=== PATIENT | female | born 1950 | race American Indian/Alaskan Native ===

== ENCOUNTER 2022-09-07 13:52 | Emergency (ER) | payer OTHER ==
[2022-09-07] MEDS ORDERED: Cyclobenzaprine 10 MG TAB ONE (14:27)
== END 2022-09-07 16:30 | disposition home or self-care (01) ==
LOC: CSHERS 13:52
DX: S16.1XXA Strain of muscle, fascia and tendon at neck level, initial encounter (principal); M25.561 Pain in right knee; M79.671 Pain in right foot; I10 Essential (primary) hypertension; E11.9 Type 2 diabetes mellitus without complications; W19.XXXA Unspecified fall, initial encounter
CPT/HCPCS: 71045; 72125; 72170

== ENCOUNTER 2022-11-30 15:26 | Outpatient (CLI) | payer OTHER | END 2022-11-30 15:27 | disposition home or self-care (01) | LOC: CSHRAD 15:26 | PROVIDERS: ATTEND Family Medicine | DX: M54.42 Lumbago with sciatica, left side (principal); M46.1 Sacroiliitis, not elsewhere classified; I70.90 Unspecified atherosclerosis; M47.816 Spondylosis without myelopathy or radiculopathy, lumbar region; I70.0 Atherosclerosis of aorta | CPT/HCPCS: 72100; 72202 ==

== ENCOUNTER 2022-12-26 11:30 | Outpatient (CLI) | payer OTHER | END 2022-12-26 11:31 | disposition home or self-care (01) | LOC: CSHMAMMO 11:30 | PROVIDERS: ATTEND Family Medicine | DX: Z12.31 Encounter for screening mammogram for malignant neoplasm of breast (principal); Z13.820 Encounter for screening for osteoporosis; M85.89 Other specified disorders of bone density and structure, multiple sites | CPT/HCPCS: 77063; 77067; 77080 ==

== ENCOUNTER 2023-01-17 08:25 | Outpatient (CLI) | payer OTHER ==
[2023-01-17] MEDS ORDERED: Iopamidol 300 61% 100 ML VIAL FS ONE (11:27)
== END 2023-01-17 08:26 | disposition home or self-care (01) ==
LOC: CSHCT 08:25
PROVIDERS: ATTEND Student in an Organized Health Care Education/Training Program
DX: R59.1 Generalized enlarged lymph nodes (principal); I65.23 Occlusion and stenosis of bilateral carotid arteries
CPT/HCPCS: 70491; 82565

== ENCOUNTER 2023-02-12 08:30 | Outpatient (CLI) | payer OTHER ==
[2023-02-12] MEDS ORDERED: Iopamidol 370 76% 100 ML VIAL ONE (10:08)
== END 2023-02-12 08:31 | disposition home or self-care (01) ==
LOC: CSHCT 08:30
PROVIDERS: ATTEND Internal Medicine Cardiovascular Disease
DX: I65.23 Occlusion and stenosis of bilateral carotid arteries (principal); R91.1 Solitary pulmonary nodule
CPT/HCPCS: 70498; 82565

== ENCOUNTER 2023-10-01 07:00 | Day surgery (SDC) | payer OTHER ==
[2023-09-27 13:51] VITALS: BMI 31.4
[2023-10-01] MEDS ORDERED: Lidocaine 2% MPF 10 ML AMP (For Epidural Use) ONE (08:25)
[2023-10-01] MEDS ORDERED: PROPOFOL 40 ML ONE (08:25)
[2023-10-01] MEDS ORDERED: PROPOFOL 20 ML ONE ×2 (09:37→09:54)
== END 2023-10-01 10:42 | disposition home or self-care (01) ==
LOC: CSHSDC 07:00
PROVIDERS: ATTEND Internal Medicine Gastroenterology
PROC: 0DBK8ZX Excision of Ascending Colon, Via Natural or Artificial Opening Endoscopic, Diagnostic (ICD-10-PCS; principal; 2023-10-01)
PROC: 0DBM8ZX Excision of Descending Colon, Via Natural or Artificial Opening Endoscopic, Diagnostic (ICD-10-PCS; 2023-10-01)
DX: D12.2 Benign neoplasm of ascending colon (principal); K63.5 Polyp of colon; K57.30 Diverticulosis of large intestine without perforation or abscess without bleeding; K64.8 Other hemorrhoids; E11.9 Type 2 diabetes mellitus without complications; I10 Essential (primary) hypertension; E78.5 Hyperlipidemia, unspecified; I25.10 Atherosclerotic heart disease of native coronary artery without angina pectoris; I73.9 Peripheral vascular disease, unspecified; Z88.5 Allergy status to narcotic agent; Z86.010 Personal history of colon polyps; Z88.0 Allergy status to penicillin; Z88.6 Allergy status to analgesic agent; Z90.49 Acquired absence of other specified parts of digestive tract; Z79.84 Long term (current) use of oral hypoglycemic drugs; Z79.899 Other long term (current) drug therapy
CPT/HCPCS: 88305; J2704